=== PATIENT | female | born 1985 | race Native Hawaiian/Other Pacific Islander ===

== ENCOUNTER 2017-03-01 09:44 | Outpatient (CLI) | payer OTHER | END 2017-03-01 19:46 | disposition home or self-care (01) | LOC: US 09:44 | DX: R10.2 Pelvic and perineal pain (principal) ==

== ENCOUNTER 2017-03-01 10:21 | Emergency (ER) | payer OTHER ==
[~2017-03-01] VITALS: Ht 170.2 cm; Wt 111.1 kg
[2017-03-01 13:24] LABS: PLATELET COUNT 447 K/uL (152-353)
[2017-03-01 13:33] LABS: POTASSIUM 4.1 mmol/L (3.6-5.2); SODIUM 134 mmol/L (136-145)
== END 2017-03-01 14:14 | disposition home or self-care (01) ==
LOC: ED 10:21
PROVIDERS: Emergency Medicine
DX: R10.11 Right upper quadrant pain (principal)
CPT/HCPCS: 36415; 80053; 81000; 81025; 82150; 82550; 83690; 84484; 85027; 86318; 99283

== ENCOUNTER 2017-04-27 09:17 | Emergency (ER) | payer OTHER ==
[~2017-04-27] VITALS: Ht 175.3 cm; Wt 117.9 kg
[2017-04-27] MEDS ORDERED: LISI20TA11 PO ×2 (09:30→09:33)
[2017-04-27] MEDS ORDERED: HYDR25TA60 PO (09:31)
[2017-04-27] MEDS ORDERED: METOPROLOL25 M1 OR (09:32)
[2017-04-27] MEDS ORDERED: FLUO10CA2 PO (09:33)
[2017-04-27] MEDS ORDERED: PROZAC10 MG PO (09:33)
== END 2017-04-27 09:58 | disposition home or self-care (01) ==
LOC: ED 09:17
DX: K08.89 Other specified disorders of teeth and supporting structures (principal); K02.9 Dental caries, unspecified; K04.7 Periapical abscess without sinus
CPT/HCPCS: 99282